=== PATIENT | male | born 1960 | race Caucasian/White ===

== ENCOUNTER 2017-09-20 07:41 | Day surgery (SDC) | payer BC ==
[~2017-09-20 07:41] MED LIST: Midazolam 1 MG/ML 2 ML SDV ONE; fentaNYL 100 MCG/2 ML SDV ONE
[2017-09-20] MEDS ORDERED: fentaNYL 100 MCG/2 ML SDV IV ONE ×3 (07:42→09:55)
[2017-09-20] MEDS ORDERED: Midazolam 1 MG/ML 2 ML SDV IV ONE ×4 (07:42→09:52)
[2017-09-20] MEDS ORDERED: Lactated Ringers 1,000 ML IV SCH (08:30)
[2017-09-20 11:22] VITALS: BP 138/94
--- NOTE | 2017-09-20 14:03 | OR ---
DATE: 09/20/2017 PREOPERATIVE DIAGNOSIS: Screening colonoscopy. POSTOPERATIVE DIAGNOSIS: Screening colonoscopy. PROCEDURE: Total colonoscopy. ANESTHESIA: Conscious sedation with IV Versed and fentanyl. SPECIMEN: None. FINDINGS: Minimal sigmoid diverticulosis. RECOMMENDATION: Followup screening colonoscopy in 10 years. INDICATION FOR PROCEDURE: This 57-year-old male has not had a prior colonoscopy. He presents for screening. PROCEDURE IN DETAIL: After adequate preparation, a colonoscope was inserted into the rectum. This was easily passed all the way to the cecum. Confirmation of the cecum was made by visualization of the ileocecal valve and the appendiceal opening. The bowel prep was good. On withdrawal of the scope, the only abnormality noted was minimal sigmoid diverticulosis. No polyps, masses, or evidence of colitis were noted. He does not have any internal hemorrhoids. Rectal examination was normal. Air was suctioned from the colon, and the scope removed. [facility] /[id number]
== END 2017-09-20 11:10 | disposition home or self-care (01) ==
LOC: DL.ENDO 07:41
PROVIDERS: ATTEND Surgery
DX: Z12.11 Encounter for screening for malignant neoplasm of colon (principal); K57.30 Diverticulosis of large intestine without perforation or abscess without bleeding; Z88.0 Allergy status to penicillin; Z79.84 Long term (current) use of oral hypoglycemic drugs; Z79.899 Other long term (current) drug therapy
CPT/HCPCS: 45378; J2250; J3010; J7120